=== PATIENT | male | born 1995 | race Caucasian/White ===

== ENCOUNTER 2018-03-02 05:59 | Emergency (ER) | payer OTHER ==
[~2018-03-02] VITALS: Ht 180.3 cm; Wt 81.6 kg
--- NOTE | 2018-03-02 07:03 | ED ANIMAL BITE/WOUND CHECK ---
History of Present Illness General Chief Complaint: General Adult Stated Complaint: RABIES VACCINE? PER PT, BAT IN BEDROOM Source: patient Exam Limitations: no limitations Vital Signs & Intake/Output Vital Signs & Intake/Output Vital Signs Date Time Temp Pulse Resp B/P B/P Pulse O2 O2 Flow FiO2 Mean Ox Delivery Rate 03/02 0755 98.0 80 20 130/80 98 Room Air 03/02 0625 97.2 78 20 136/80 98 Room Air Allergies Coded Allergies: No Known Allergies (03/02/18) Reconcile Medications No Known Home Medications Triage Note: PT STATES THERE IS A BAT IN HIS HOUSE AND HE SAW BAT DROPPINGS IN HIS ROOM SO HE IS REQUESTING A RABIES VACCINE A PRECAUTION. DENIES ANY EVIDENCE OF BITE Triage Nurses Notes Reviewed? yes HPI: 22 year old male with no past medical history presenting with chief complaint of exposure to a bat in his house. 4 days ago a bat was found in the patient's sister's room, who has already begun the vaccination process. Yesterday they found small droppings in the patient's room, suggesting that the bat had also been in his room, unmonitored while the patient may have been asleep. The patient was unable to confirm that he was not bitten by the bat, but denied definitive bite wounds. He similarly denied headache, fever/chills, nausea/ vomiting, weakness/lethargy, numbness or tingling of his extremities. (Madhu HARPER,Brice) Past History Travel History Traveled to [place] past 21 day No Medical History Any Pertinent Medical History? 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 No (Madhu HARPER,Brcie) Psychosocial History Illicit Drug Use: denies illicit drug use (Gita HARPER,Luiz Montoya) Review of Systems Review of Systems Constitutional: Denies: chills, diaphoresis, fever, malaise, weakness. Respiratory: Denies: cough, short of breath. Cardiovascular: Denies: chest pain, palpitations. GI: Denies: nausea, vomiting. Neurological/Psychological: Denies: headache, numbness, paresthesia, tingling. (Brice Leung MD) Review of Systems Immunologic/Allergic: Reports: no symptoms. (Luiz Pelayo MD) Physical Exam Physical Exam General Appearance: well developed/nourished, no apparent distress, alert, awake Respiratory: normal breath sounds, lungs clear Cardiovascular: regular rate/rhythm (Brice Leung MD) Physical Exam Eyes: Bilateral: PERRL, EOMI. Neurologic/Psych: no motor/sensory deficits, awake, alert, oriented x 3, normal gait, normal mood/affect (Luiz Pelayo MD) Progress Differential Diagnosis: Possible rabies exposure, bat in house Plan of Care: RABIES (Brice Leung MD) Plan of Care: RABIES (Luiz Pelayo MD) Departure Departure Disposition: HOME OR SELF CARE Condition: Stable Clinical Impression Primary Impression: Rabies exposure Referrals: Marques Moses MD (PCP/Family) Additional Instructions: Today is day 0 of the rabies vaccination schedule. Please return to the emergency department on day 3 (03/05), day 7 (03/09), and day 14, (03/16) to complete the vaccination series. Departure Forms: Customer Survey General Discharge Information Prescriptions: Current Visit Scripts No Known Home Medications (Brice Leung MD) Resident Co-Sign Statement Statement: ED Attending supervision documentation- [X] I saw and evaluated the patient. I have also reviewed all the pertinent lab results and diagnostic results. I agree with the findings and the plan of care as documented in the Resident's documentation. [X] I have reviewed the ED Record and agree with the Resident's documentation. [] Additions or exceptions (if any) to the Resident's note and plan are summarized below: [] (Luiz Pelayo MD)
[2018-03-02 07:55] VITALS: BP 130/80
== END 2018-03-02 07:56 ==
LOC: ERH 05:59
DX: Z20.3 Contact with and (suspected) exposure to rabies (principal)
CPT/HCPCS: 90376; 90471

== ENCOUNTER 2018-03-05 10:17 | Emergency (ER) | payer OTHER ==
[~2018-03-05] VITALS: Ht 180.3 cm; Wt 81.6 kg
[2018-03-05 10:20] VITALS: BP 143/90
--- NOTE | 2018-03-05 11:17 | ED GENERAL ADULT ---
History of Present Illness General Chief Complaint: Suture Removal/Wound Recheck Stated Complaint: 2ND VISIT FOR RABIES SHOT Source: patient Exam Limitations: no limitations Vital Signs & Intake/Output Vital Signs & Intake/Output ED Intake and Output 03/06 0000 03/05 1200 Intake Total Output Total Balance Patient 180 lb Weight Weight Reported by Patient Measurement Method Allergies Coded Allergies: No Known Allergies (03/05/18) Reconcile Medications No Known Home Medications Triage Note: PT HERE FOR SECOND RABIES SHOT. Triage Nurses Notes Reviewed? yes Onset: Abrupt Duration: week(s): (2), better Timing: single episode today Injury Environment: home No Modifying Factors: none HPI: 22-year-old male presents for his second rabies shot. He found a bat in his room several days ago. He was evaluated in the ER received his first rabies shot. He tolerated it well. He denies any symptoms currently. Past History Travel History Traveled to [place] past 21 day No Medical History Any Pertinent Medical History? 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 No Review of Systems Review of Systems Constitutional: Reports: no symptoms. EENTM: Reports: no symptoms. Respiratory: Reports: no symptoms. Cardiovascular: Reports: no symptoms. GI: Reports: no symptoms. Genitourinary: Reports: no symptoms. Musculoskeletal: Reports: no symptoms. Skin: Reports: no symptoms. Neurological/Psychological: Reports: no symptoms. Hematologic/Endocrine: Reports: no symptoms. Immunologic/Allergic: Reports: no symptoms. All Other Systems: Reviewed and Negative Physical Exam Physical Exam General Appearance: well developed/nourished, no apparent distress, alert, awake Head: atraumatic, normal appearance Eyes: Bilateral: normal appearance, EOMI. Ears, Nose, Throat: hearing grossly normal Neck: normal inspection, supple, full range of motion Respiratory: no respiratory distress Back: normal inspection, normal range of motion Extremities: normal inspection, normal range of motion Neurologic/Psych: no motor/sensory deficits, awake, alert, oriented x 3, normal gait, normal mood/affect Skin: intact, normal color, warm/dry Core Measures ACS in differential dx? No CVA/TIA Diagnosis: No Sepsis Present: No Sepsis Focused Exam Completed? No Progress Differential Diagnoses I considered the following diagnoses in my evaluation of the patient: [Rabies exposure, bat bite] Plan of Care: Patient is here for second rabies shot. He tolerated for swelling on palpation. He offers no complaints currently. Second rabies shot was given patient tolerated well. Advised to return on day 7. Discussed return precautions patient agrees Initial ED EKG: none Departure Departure Disposition: HOME OR SELF CARE Condition: Stable Clinical Impression Primary Impression: Rabies, need for prophylactic vaccination against Referrals: Aurelia HARPER,Marques Sandoval (PCP/Family) Additional Instructions: Return on day 7 for your next rabies vaccine return sooner with any concerns. Departure Forms: Customer Survey General Discharge Information Prescriptions: Current Visit Scripts No Known Home Medications Critical Care Note Critical Care Note Critical Care Time: non-applicable
== END 2018-03-05 11:27 ==
LOC: ERH 10:17
DX: Z23 Encounter for immunization (principal)
CPT/HCPCS: 90471; 99281

== ENCOUNTER 2018-03-16 11:10 | Emergency (ER) | payer OTHER ==
[2018-03-16 11:37] VITALS: BP 136/70
--- NOTE | 2018-03-16 11:46 | ED GENERAL ADULT ---
History of Present Illness General Chief Complaint: Animal/Insect Bite Stated Complaint: LAST RABIES SHOT Source: patient Exam Limitations: no limitations Vital Signs & Intake/Output Vital Signs & Intake/Output ED Intake and Output 03/17 0000 03/16 1200 Intake Total 0 Output Total Balance 0 Intake, Oral 0 Allergies Coded Allergies: No Known Allergies (03/05/18) Reconcile Medications No Known Home Medications Triage Note: PT HERE FOR LAST RABIES VACCINE. OFFERS NO COMPLAINTS Triage Nurses Notes Reviewed? yes Onset: Abrupt Duration: week(s): (2), better, gone now Injury Environment: home HPI: 22-year-old male presents for his last rabies shot. 2 weeks ago he awoke to bat in his room. He states he feels well denies any complications or side effects from the vaccine. (Kal Barry) Past History Travel History Traveled to [place] past 21 day No Medical History Any Pertinent Medical History? 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 No (Kal Barry) Review of Systems Review of Systems Constitutional: Reports: no symptoms. EENTM: Reports: no symptoms. Respiratory: Reports: no symptoms. Cardiovascular: Reports: no symptoms. GI: Reports: no symptoms. Genitourinary: Reports: no symptoms. Musculoskeletal: Reports: no symptoms. Skin: Reports: no symptoms. Neurological/Psychological: Reports: no symptoms. Hematologic/Endocrine: Reports: no symptoms. Immunologic/Allergic: Reports: no symptoms. All Other Systems: Reviewed and Negative (Kal Barry) Physical Exam Physical Exam General Appearance: well developed/nourished, no apparent distress, alert, awake Head: atraumatic, normal appearance Eyes: Bilateral: normal appearance, EOMI. Ears, Nose, Throat: hearing grossly normal Neck: normal inspection Respiratory: no respiratory distress Back: normal inspection Extremities: normal inspection, normal range of motion, no edema Neurologic/Psych: no motor/sensory deficits, awake, alert, oriented x 3, normal gait, normal mood/affect Skin: intact, normal color, warm/dry Core Measures ACS in differential dx? No CVA/TIA Diagnosis: No Sepsis Present: No Sepsis Focused Exam Completed? No (Kal Barry) Progress Differential Diagnoses I considered the following diagnoses in my evaluation of the patient: [Need for rabies vaccine] Plan of Care: Patient is here for his last rabies vaccine. He is been tolerating the first vaccines well. He offers no complaints. Last rabies vaccine given patient tolerated well discussed return precautions patient agrees the plan Initial ED EKG: none (Kal Barry) Departure Departure Disposition: HOME OR SELF CARE Condition: Stable Clinical Impression Primary Impression: Rabies, need for prophylactic vaccination against Referrals: Aurelia HARPER,Marques Sandoval (PCP/Family) Additional Instructions: FOLLOW UP With your doctor. Return with any concerns. Departure Forms: Customer Survey General Discharge Information Prescriptions: Current Visit Scripts No Known Home Medications (Kal Barry) PA/PULVERIZER OPERATOR Co-Sign Statement Statement: ED Attending supervision documentation- [] I saw and evaluated the patient. I have also reviewed all the pertinent lab results and diagnostic results. I agree with the findings and the plan of care as documented in the PA's/PULVERIZER OPERATOR's documentation. [x] I have reviewed the ED Record and agree with the PA's/PULVERIZER OPERATOR's documentation. [] Additions or exceptions (if any) to the PAs/PULVERIZER OPERATOR's note and plan are summarized below: [] (Yani HARPER,[facility]) Critical Care Note Critical Care Note Critical Care Time: non-applicable (Kal Barry)
== END 2018-03-16 11:52 ==
LOC: ERH 11:10
DX: Z23 Encounter for immunization (principal)
CPT/HCPCS: 90471; 99281